=== PATIENT | female | born 1990 | race Caucasian/White ===

== ENCOUNTER → 2016-07-10 | Outpatient (CLI) | payer OTHER ==
--- NOTE | 2016-07-10 16:26 | REP ---
Clinical: Anatomical evaluation. Comparison: None . Findings: Examination demonstrates a single live intrauterine in breech presentation. motion is identified by technologist. Placenta is noted posterior and grade the zero without evidence for placenta previa or abruption. Amniotic fluid volume is normal. Cervix measures 4.3 cm in length and appears closed. No evidence for nuchal cord. Gestational age by LMP 18 weeks 6 days with SAURABH 12/05/2016 . Gestational age by current measurements 19 weeks 2 days with SAURABH 12/02/2016 . FHR equals 147 beats per minute. BPD 4.2 18 weeks 5 days HC 16.6 19 weeks 2 days AC 14.5 19 weeks 6 days FL 3.1 19 weeks 4 days HC/AC ratio 1.15 Estimated weight 303 grams ( 75th percentile). Anatomical assessment demonstrates normal structures including cranium, choroid plexus, cavum, cerebellum/posterior fossa, facial features, lungs, four-chamber heart/ventricular outflow tracts, diaphragm, stomach, cord insertion/three-vessel cord, kidneys/bladder, spine, and extremities. Impression: Single live intrauterine in breech presentation demonstrating appropriate interval growth. Anatomical assessment is complete and normal.
== END ==
LOC: M WHC 14:50
PROVIDERS: ATTEND Obstetrics & Gynecology
DX: Z36 Encounter for antenatal screening of mother (principal); Z3A.18 18 weeks gestation of pregnancy

== ENCOUNTER → 2016-11-07 | Outpatient (REF) | payer OTHER | LOC: M LAB REF 17:24 | PROVIDERS: ATTEND Specialist | DX: Z36 Encounter for antenatal screening of mother (principal); Z3A.00 Weeks of gestation of pregnancy not specified ==

== ENCOUNTER 2016-12-08 08:36 | Inpatient (IN) | payer OTHER ==
[~2016-12-08] VITALS: Ht 162.6 cm; Wt 70.0 kg
[2016-12-08] VITALS (31 sets, daily range): BP systolic 90–152; BP diastolic 50–82
[2016-12-08 12:36] LABS: MEAN CORPUSCULAR HEMOGLOBIN 35.5 pg (27.0-33.0); MEAN CORPUSCULAR HGB CONC 35.9 g/dl (32.0-36.5); MEAN CORPUSCULAR VOLUME 98.9 fl (80.0-96.0); RED CELL DISTRIBUTION WIDTH 13.5 % (11.5-14.5); WHITE BLOOD COUNT 21.5 K/mm3 (4.0-10.0)
[2016-12-08] MEDS ORDERED: PRENTAB9 PO (13:17)
[2016-12-08] MEDS ORDERED: ACET50TA PO (13:17)
[2016-12-08] MEDS ORDERED: OXYTOCIN DRIP 30 UNITS in APPROPRIATE DILUENT 1 EA IV SCH (16:45)
[2016-12-08] MEDS ORDERED: FENTANYL 2MCG/ML ROPIVACAINE 0.2% IN 0.9% NACL 200ML IVBAG As Ordered ONE (17:19)
[2016-12-08] MEDS ORDERED: EPIDURAL/PCA KEYS XX PRN (18:30)
[2016-12-08] MEDS ORDERED: FENTANYL/ROPIVACAINE/NACL BAG 200 ML EPIDURAL SCH (18:30)
[2016-12-08] MEDS ORDERED: EPIDURAL COMMENT XX SCH (18:30)
[2016-12-08] MEDS ORDERED: REFRIGERATOR IV KEYS XX PRN (18:30)
[2016-12-08] MEDS ORDERED: NALOXONE INJ 0.4 MG/1 ML VIAL (J2310) IV PRN (18:30)
[2016-12-08] MEDS ORDERED: ONDANSETRON 4MG/2ML VIAL (J2405) IV PRN (18:30)
[2016-12-08] MEDS ORDERED: diphenhydrAMINE INJ 50MG/ML VIAL (J1200) IV PRN (18:30)
[2016-12-08] MEDS ORDERED: LACTATED RINGER'S 1000 ML IV PRN (18:30)
[2016-12-08] MEDS: LR 1,000 ML IV SCH (19:42)
--- NOTE | 2016-12-08 20:23 | HPE ---
DATE OF ADMISSION: 12/08/2016 HISTORY: A 26-year-old 2, para 0-0-1-0 female at 40 and 3/7 weeks gestation by last menstrual period (LMP) consistent with eight-week ultrasound, estimated date of confinement (EDC) 12/05/2016, who presents with regular contractions every 3-4 minutes for the last several hours. Denies vaginal bleeding. Has good movement. COURSE: The patient initiated care at eight weeks gestation on 04/28/2016. Her first trimester blood pressure was 120/68, weight 136 pounds. course was unremarkable. MEDICAL HISTORY: Noncontributory. SURGERIES: None. ALLERGIES: None. SOCIAL HISTORY: The patient smokes cigarettes. She cut back to about eight cigarettes per day at the start of her . She denies alcohol or drug use during . FAMILY HISTORY: Noncontributory. PHYSICAL EXAMINATION: VITAL SIGNS: Blood pressure 124/74, pulse 84. GENERAL: She appears uncomfortable. HEAD/NECK: Normal. LUNGS: Clear. HEART: Regular rate and rhythm. ABDOMEN: Nontender. Gravid. heart tones category one. STERILE VAGINAL EXAM: 3 cm, 100% effaced, -1 station, vertex intact. Contractions every 3-4 minutes. EXTREMITIES: Nontender. LABORATORY DATA: Blood type A positive. Rubella immune. RPR nonreactive. Hepatitis B and C negative. HIV negative. GBS negative on 11/07/2016. ASSESSMENT: A 26-year-old 2, para 0-0-1-0 female at 40 and 3/7 weeks gestation presents in early labor. The patient is admitted on 12/08/2016.
[2016-12-08] MEDS: ePHEDrine SULFATE 25 MG/5 ML(5MG/ML) SYRINGE IV PRN ×2 (23:04→23:07)
[2016-12-09] VITALS (23 sets, daily range): BP systolic 97–137; BP diastolic 52–78
[2016-12-09] MEDS: LR 1,000 ML IV SCH (06:31)
[2016-12-09] MEDS ORDERED: AMPICILLIN SOD 2 GM in D5W MINI-BAG PLUS 100 ML IV SCH (07:00)
[2016-12-09] MEDS ORDERED: GENTAMICIN 80 MG in APPROPRIATE DILUENT 1 EA IV SCH (08:00)
[2016-12-09 08:57] LABS: CORD GAS ABE V -4.6; CORD GAS HCO3 V 19.8 MEQ/L; CORD GAS O2 SAT V 47.3 %; CORD GAS PCO2 V 35.2 mmHg; CORD GAS PH V 7.368 UNITS; CORD GAS PO2 V 20.7 mmHg; CORD GAS SBC V 19.4 MEQ/L; CORD GAS TCO2 V 20.9 MEQ/L
[2016-12-09] MEDS ORDERED: METHYLERGONOVINE MALEATE 0.2 MG TAB PO PRN (09:00)
[2016-12-09] MEDS ORDERED: ONDANSETRON 4MG/2ML VIAL (J2405) IV PRN (09:00)
[2016-12-09] MEDS ORDERED: RHOGAM 300 MCG (1500 IU) INJ (J2790) IM SCH (09:00)
[2016-12-09] MEDS ORDERED: MEASLES,MUMPS,RUBELLA VACCINE INJ (MMR-II) (90707) SC SCH (09:00)
[2016-12-09] MEDS ORDERED: DIBUCAINE 1% OINTMENT 30GM TOP PRN (09:00)
[2016-12-09] MEDS ORDERED: ACETAMINOPHEN 500 MG TAB PO PRN (09:00)
[2016-12-09] MEDS ORDERED: OXYTOCIN DRIP 30 UNITS in APPROPRIATE DILUENT 1 EA IV ONE (09:00)
[2016-12-09] MEDS: PRENATAL VITAMINS CHEWABLE TABLET PO SCH (09:00)
[2016-12-09] MEDS ORDERED: DOCUSATE SODIUM 100 MG CAP PO PRN (09:00)
[2016-12-09] MEDS: IBUPROFEN 800 MG TAB PO PRN ×2 (10:01→18:41)
[2016-12-10 06:20] VITALS: BP 117/69
[2016-12-10] MEDS: PRENATAL VITAMINS CHEWABLE TABLET PO SCH (10:23)
[2016-12-10] MEDS: IBUPROFEN 800 MG TAB PO PRN ×2 (10:23→19:50)
[2016-12-10 19:30] VITALS: BP 125/68
--- NOTE | 2016-12-10 22:46 | DN ---
DATE OF DELIVERY: 12/09/2016 PREDELIVERY DIAGNOSES: 1. Term . 2. Labor. POSTDELIVERY DIAGNOSIS: Delivered. PROCEDURE: Spontaneous vaginal delivery, chorioamnionitis. LIBRARY TECHNOLOGY INSTRUCTOR: Ugo Lozada MD. ANESTHESIA: Epidural. ESTIMATED BLOOD LOSS: 300 mL. FINDINGS: 3958 gram or 8 pound 12 ounce male infant, scores 2, 6 and 9 with moderate meconium present. Venous cord gas 7.36, base excess -4.6. DELIVERY SUMMARY: After a short second stage, the patient had spontaneous delivery of an 8 pound 12 ounce male infant under epidural anesthesia. Patient had been on antibiotics for presumed chorioamnionitis due to intrapartum fever to 100.9. The shoulders delivered with ease. The was handed to the mother. The cord was doubly clamped and cut. The placenta delivered spontaneously and appeared to be intact. The patient received intravenous (IV) Pitocin immediately after delivery of the placenta. There were no vaginal lacerations present. Sponge counts were correct.
[2016-12-11 06:41] VITALS: BP 119/76
[2016-12-11] MEDS: PRENATAL VITAMINS CHEWABLE TABLET PO SCH (07:53)
[2016-12-11] MEDS: IBUPROFEN 800 MG TAB PO PRN (07:55)
[2016-12-11] MEDS ORDERED: IBUP-1114 PO (09:22)
== END 2016-12-11 11:05 | disposition home or self-care (01) | DRG 560 ==
LOC: M LDO 08:36 → M LDI 10:07 → M OBS 12-09 13:37
PROVIDERS: ADMIT Specialist; ATTEND Specialist
PROC: 10E0XZZ Delivery of Products of Conception, External Approach (ICD-10-PCS; principal; 2016-12-09)
DX: O48.0 Post-term pregnancy (principal); O41.1230 Chorioamnionitis, third trimester, not applicable or unspecified; Z37.0 Single live birth; Z3A.40 40 weeks gestation of pregnancy; F17.210 Nicotine dependence, cigarettes, uncomplicated; O99.334 Smoking (tobacco) complicating childbirth

== ENCOUNTER → 2019-02-13 | Outpatient (CLI) | payer OTHER ==
[~2019-02-13] MED LIST: IBUP-1114 PO; LABE20TAB PO; MAPA500T2 PO; PRENTAB9 PO
[2019-02-13 13:43] LABS: BASO # 0.1 10^3/uL (0.0-0.2); BASO % 0.9 % (0.0-1.0); EOS # 0.3 10^3/uL (0.0-0.5); EOS % 3.3 % (0.0-3.0); HEMATOCRIT 36.7 % (36.0-47.0); HEMOGLOBIN 12.5 g/dl (12.0-15.5); LYMPH # 3.7 10^3/uL (1.5-5.0); LYMPH % 35.6 % (24.0-44.0); MEAN CORPUSCULAR HEMOGLOBIN 33.5 pg (27.0-33.0); MEAN CORPUSCULAR HGB CONC 34.1 g/dl (32.0-36.5); MEAN CORPUSCULAR VOLUME 98.4 fl (80.0-96.0); MONO # 0.6 10^3/uL (0.0-0.8); MONO % 5.9 % (0.0-5.0); NEUTROPHILS # 5.6 10^3/uL (1.5-8.5); NEUTROPHILS % 53.5 % (36.0-66.0); PLATELET COUNT, AUTOMATED 440 10^3/uL (150-450); RED BLOOD COUNT 3.73 10^6/uL (4.00-5.40); WHITE BLOOD COUNT 10.4 10^3/uL (4.0-10.0)
[2019-02-13 15:37] LABS: CHLAMYDIA DNA AMPLIFICATION NEGATIVE (NEGATIVE); GC DNA AMPLIFICATION NEGATIVE (NEGATIVE)
[2019-02-14 12:22] LABS: HEPATITIS C VIRUS ABY INDEX 0.2 INDEX (<0.8); HIV 1&2 SCREEN CENTAUR NEGATIVE (NEGATIVE); RUBELLA IgG QUALITATIVE IMMUNE (IMMUNE)
== END ==
LOC: M SMT 09:21
PROVIDERS: ATTEND Advanced Practice Midwife
DX: Z34.81 Encounter for supervision of other normal pregnancy, first trimester (principal); Z3A.00 Weeks of gestation of pregnancy not specified

== ENCOUNTER → 2019-04-22 | Outpatient (CLI) | payer OTHER ==
--- NOTE | 2019-04-22 17:38 | REP ---
Clinical: Anatomical evaluation. Comparison: None . Findings: Examination demonstrates a single live intrauterine in transverse (head to maternal left) presentation. motion is identified by technologist. Placenta is noted anterior and grade zero without evidence for placenta previa or abruption. Amniotic fluid volume is normal. Cervix measures 3.5 cm in length and appears closed. No evidence for nuchal cord. Gestational age by LMP 18 weeks 0 days with SAURABH 09/23/2019 . Gestational age by current measurements 18 weeks 2 days with SAURABH 09/21/2019 . FHR equals 126 beats per minute. BPD 3.8 cm 17 weeks 5 days HC 14.7 cm 17 weeks 6 days AC 13.1 cm 18 weeks 4 days FL 2.6 cm 18 weeks 0 days HL 2.9 cm 19 weeks 2 days HC/AC ratio 1.12 Estimated weight 231 grams ( 57th percentile). Anatomical assessment demonstrates normal structures including cranium, choroid plexus, cavum, cerebellum/posterior fossa, facial features, lungs, four-chamber heart/ventricular outflow tracts, diaphragm, stomach, cord insertion/three-vessel cord, kidneys/bladder, spine, and extremities. Impression: Single live intrauterine in transverse lie demonstrating appropriate interval growth. Anatomical assessment is complete and normal. No gross abnormalities are identified. Electronically Signed by Colby Sevilla MD 04/22/2019 05:30 P
== END ==
LOC: M RAD 16:27
PROVIDERS: ATTEND Obstetrics & Gynecology
DX: Z34.82 Encounter for supervision of other normal pregnancy, second trimester (principal); Z3A.18 18 weeks gestation of pregnancy

== ENCOUNTER 2019-06-18 21:55 | Inpatient (IN) | payer OTHER ==
[~2019-06-18] VITALS: Ht 162.6 cm; Wt 72.3 kg
[2019-06-18 22:15] VITALS: BP 135/77
[2019-06-18] MEDS ORDERED: PROMETHAZINE INJ 25 MG/ML VIAL (J2550) IV ONE (22:45)
[2019-06-18] MEDS ORDERED: BUTORPHANOL 2 MG/ML INJ (J0595) IV ONE (22:45)
[2019-06-18 23:07] LABS: HEMATOCRIT 37.9 % (36.0-47.0); HEMOGLOBIN 12.4 g/dl (12.0-15.5); MEAN CORPUSCULAR HEMOGLOBIN 32.4 pg (27.0-33.0); MEAN CORPUSCULAR HGB CONC 32.7 g/dl (32.0-36.5); PLATELET COUNT, AUTOMATED 190 10^3/uL (150-450); RED BLOOD COUNT 3.83 10^6/uL (4.00-5.40); WHITE BLOOD COUNT 9.2 10^3/uL (4.0-10.0)
[2019-06-18 23:10] VITALS: BP 118/74
[2019-06-18] MEDS: miSOPROStol 200 MCG TAB (S0191) PO SCH (23:12)
[2019-06-19] VITALS (10 sets, daily range): BP systolic 106–150; BP diastolic 53–79
[2019-06-19] MEDS: miSOPROStol 200 MCG TAB (S0191) PO SCH (05:14)
--- NOTE | 2019-06-19 06:47 | HPE ---
DATE OF ADMISSION: 06/18/2019 Pita is a 28-year-old 3, para 1-0-1-1 now who was admitted to labor and delivery with an intrauterine demise. She presented to the care office on June 16 for routine care and was diagnosed with an intrauterine demise. By today's date, she should be 26-1/7 weeks based on an estimated date of confinement (EDC) of 09/23/2019. The fetus measured 20 weeks and 1 day by biparietal diameter(BPD) on 06/16. She denies any vaginal bleeding or leakage of fluid. There is no complaint of contractions. Her care was initiated at [facility] in the first trimester. care complicated by a diagnosis of intrauterine demise (IUFD). OBSTETRICAL HISTORY: August 2012 spontaneous miscarriage at 7 weeks. November 2016 40 weeks 4 days, 8 pound 12 ounce male spontaneous vaginal delivery. OBSTETRIC LABS: A positive. Antibody screen negative. Rubella immune. VDRL nonreactive. Urine culture no growth. Hep B surface antigen negative. HIV negative. Hep C nonreactive. Gonorrhea and chlamydia negative. She did decline genetic serum screening labs. PAST MEDICAL HISTORY: She has oral allergy syndrome. She is allergic to apples, peaches, pears and fruits with any pits. Causes her severe itching of the mouth. She has a history of an abnormal Pap in 2013. Childhood varicella. SURGERIES: None. FAMILY HISTORY: Hypertension, heart disease, bipolar and varicose veins. SOCIAL HISTORY: : The patient is single, however the father of the baby is at bedside. He is having some difficulty coping. She reports reducing her smoking significantly during her . Denies alcohol and drug use during . There is no history of any sexually transmitted infections. She denies history of abuse physical, sexual and emotional. ALLERGIES: No known drug allergies. CURRENT MEDICATIONS: - vitamin - bupropion OBJECTIVE: Vital signs are stable, temperature 98.1, pulse 95, respirations 20, blood pressure is 135/77. She is alert and oriented times three. Sterile vaginal exam: Fingertip dilated, 50% effaced, posterior, moderate texture. No bloody show with the exam. No current pattern of contractions. Ultrasound for heart will not be applied. ASSESSMENT: Intrauterine demise. By dates she is 26-1/7 weeks. The fetus measures 21 weeks' 1 day by BPD. PLAN: Admit the patient to labor and delivery for induction of labor per consult. Routine labs. Saline lock. Misoprostol 200 mcg p.o. for induction. I did review risks and benefits with the patient. She and her partner's questions have been answered. She is considering IV pain medications to cope with her labor and/or an epidural. I do anticipate labor.
[2019-06-19] MEDS ORDERED: miSOPROStol 200 MCG TAB (S0191) PO SCH ×2 (09:00→10:30)
[2019-06-19] MEDS ORDERED: OXYTOCIN 30 UNITS IN 0.9% NaCl 500ML IV BAG (J2590) As Ordered ONE (10:27)
[2019-06-19] MEDS ORDERED: OXYTOCIN DRIP 30 UNITS in IV 1 EA IV SCH (10:40)
[2019-06-19] MEDS ORDERED: METHYLERGONOVINE MALEATE 0.2 MG TAB PO PRN (10:45)
[2019-06-19] MEDS ORDERED: ACETAMINOPHEN TAB 650MG DOSE (2X325MG) PO PRN (10:45)
[2019-06-19] MEDS ORDERED: RHOGAM 300 MCG (1500 IU) INJ (J2790) IM SCH (10:45)
[2019-06-19] MEDS ORDERED: IBUPROFEN 800 MG TAB PO PRN (10:45)
[2019-06-19] MEDS ORDERED: IBUPROFEN 600 MG TAB PO PRN (10:45)
[2019-06-19] MEDS ORDERED: ACETAMINOPHEN 500 MG TAB PO PRN (10:45)
--- NOTE | 2019-06-19 19:03 | DN ---
DATE: 06/19/2019 Pita is a 28-year-old female, 3, para 1-0-1-1 who was admitted with intrauterine demise at 26 weeks. She received care at [facility]. She was diagnosed with an intrauterine demise on June 16 during a routine care. She presented here to labor and delivery. Had two doses of Cytotec with intravenous (IV) pain medications. She then became fully dilated. Delivered the fetus as well as the placenta intact in the bag. Upon delivery, it was noted that the cord was wrapped around the fetus times four, around the right arm. The placenta appeared to be intact. Fetus is a female infant, 0 , demise. The perineum and vagina inspected as well as bimanual exam done. No excessive bleeding. Estimated blood loss was 150 mL. Both the patient and the father of the baby counseled extensively. Option for autopsy given. They both declined. The patient also expressed an interest in going home as soon as possible. We discussed that option with her and advised her as long there is no excessive bleeding within 4-6 hours after her delivery, she will be discharged home to followup at [facility] in approximately 1-2 weeks.
== END 2019-06-19 16:10 | disposition home or self-care (01) | DRG 560 ==
LOC: EEVIPCON 21:55 → M LDI 21:55
PROVIDERS: ADMIT Advanced Practice Midwife; ATTEND Advanced Practice Midwife
PROC: 10E0XZZ Delivery of Products of Conception, External Approach (ICD-10-PCS; principal; 2019-06-19)
DX: O69.82X0 Labor and delivery complicated by other cord entanglement, without compression, not applicable or unspecified (principal); Z3A.26 26 weeks gestation of pregnancy; Z37.1 Single stillbirth

== ENCOUNTER → 2020-05-12 | Outpatient (REF) | payer OTHER ==
[2020-05-12 17:09] LABS: HEMATOCRIT 35.1 % (36.0-47.0); HEMOGLOBIN 11.8 g/dl (12.0-15.5); MEAN CORPUSCULAR HEMOGLOBIN 32.8 pg (27.0-33.0); MEAN CORPUSCULAR HGB CONC 33.6 g/dl (32.0-36.5); MEAN CORPUSCULAR VOLUME 97.5 fl (80.0-96.0); PLATELET COUNT, AUTOMATED 224 10^3/uL (150-450); WHITE BLOOD COUNT 9.1 10^3/uL (4.0-10.0)
[2020-05-13 11:33] LABS: HEPATITIS C VIRUS ABY INDEX 0.1 INDEX (<0.8); HIV 1&2 SCREEN CENTAUR NEGATIVE (NEGATIVE)
== END ==
LOC: M PLALAB 15:19
PROVIDERS: ATTEND Obstetrics & Gynecology
DX: O09.291 Supervision of pregnancy with other poor reproductive or obstetric history, first trimester (principal); Z3A.00 Weeks of gestation of pregnancy not specified

== ENCOUNTER → 2020-05-28 | Outpatient (CLI) | payer OTHER | LOC: M PLALAB 10:01 | PROVIDERS: ATTEND Advanced Practice Midwife | DX: Z34.82 Encounter for supervision of other normal pregnancy, second trimester (principal); Z3A.00 Weeks of gestation of pregnancy not specified ==

== ENCOUNTER → 2020-06-28 | Outpatient (REF) | payer OTHER ==
[2020-06-28 21:46] LABS: CHLAMYDIA DNA AMPLIFICATION NEGATIVE (NEGATIVE); GC DNA AMPLIFICATION NEGATIVE (NEGATIVE)
== END ==
LOC: M SFHCWAGY 17:15
PROVIDERS: ATTEND Obstetrics & Gynecology
DX: O09.291 Supervision of pregnancy with other poor reproductive or obstetric history, first trimester (principal)

== ENCOUNTER → 2020-06-29 | Outpatient (CLI) | payer OTHER ==
--- NOTE | 2020-06-29 10:33 | REP ---
INDICATION: ANATOMY COMPARISON: None. TECHNIQUE: Transabdominal obstetrical ultrasound with color Doppler evaluation. FINDINGS: Examination demonstrates a single live intrauterine in breech presentation. motion is identified by technologist. Placenta is noted posterior and grade 1 without evidence for placenta previa or abruption. Amniotic fluid volume is normal. Cervix measures 5.9 cm in length and appears closed.. Gestational age by LMP 18 weeks 3 days with SAURABH 11/27/2020. Gestational age by current measurements 18 weeks 1 day with SAURABH 11/29/2020. FHR equals 169 beats per minute. BPD: 3.8 cm 17 weeks 5 days HC: 15.1 cm 18 weeks 1 day AC: 12.5 cm 18 weeks 1 day FL: 2.6 cm 18 weeks 0 days HL: 2.7 cm 18 weeks 5 days HC/AC: 1.21 Estimated weight 221 grams. Anatomical assessment demonstrates normal structures including cranium, choroid plexus, cavum, cerebellum/posterior fossa, facial features, lungs, four-chamber heart/left ventricular outflow tract, diaphragm, stomach, cord insertion/three-vessel cord, kidneys/bladder, and extremities. IMPRESSION: Single live intrauterine in breech presentation demonstrating appropriate estimated growth. Limited evaluation of the right cardiac ventricular outflow tract and spine due to positioning. Remainder of the anatomical assessment is complete and normal. <Electronically signed by Colby Sevilla > 06/29/20 [id number]
== END ==
LOC: M RAD 09:27
PROVIDERS: ATTEND Advanced Practice Midwife
DX: Z34.82 Encounter for supervision of other normal pregnancy, second trimester (principal)

== ENCOUNTER → 2020-07-13 | Outpatient (CLI) | payer OTHER | LOC: M WHC 14:57 | PROVIDERS: ATTEND Obstetrics & Gynecology | DX: Z53.29 Procedure and treatment not carried out because of patient's decision for other reasons (principal); Z3A.20 20 weeks gestation of pregnancy ==

== ENCOUNTER → 2020-07-27 | Outpatient (REF) | payer OTHER | LOC: M PLALAB 15:14 | PROVIDERS: ATTEND Obstetrics & Gynecology | DX: Z3A.22 22 weeks gestation of pregnancy (principal) ==

== ENCOUNTER → 2020-07-29 | Outpatient (CLI) | payer OTHER ==
--- NOTE | 2020-07-29 11:40 | REP ---
INDICATION: F/U ANATOMY COMPARISON: 06/29/2020 TECHNIQUE: Transabdominal obstetrical ultrasound with color Doppler evaluation. FINDINGS: Examination demonstrates a single live intrauterine in cephalic presentation. motion is identified by technologist. Placenta is noted posterior and grade 1 without evidence for placenta previa or abruption. Amniotic fluid volume is normal. Cervix measures 4.9 cm in length and appears closed.. Gestational age by LMP 22 weeks 5 days with SAURABH 11/27/2020. Gestational age by current measurements 22 weeks 2 days with SAURABH 11/30/2020. Gestational age by 1st ultrasound 22 weeks 3 days with SAURABH 11/29/2020 FHR equals 143 beats per minute. Estimated weight 484 grams (22ndpercentile). Anatomical assessment demonstrates normal structures including cranium, facial profile, nose/lips, right cardiac ventricular outflow tract, stomach, kidneys/bladder, spine and three-vessel cord. IMPRESSION: Single live intrauterine in cephalic presentation demonstrating appropriate interval growth. In conjunction with prior examination anatomical assessment is complete and normal. <Electronically signed by Colby Sevilla > 07/29/20 [id number]
== END ==
LOC: M WHC 09:24
PROVIDERS: ATTEND Obstetrics & Gynecology
DX: Z34.92 Encounter for supervision of normal pregnancy, unspecified, second trimester (principal); Z3A.22 22 weeks gestation of pregnancy

== ENCOUNTER → 2020-08-24 | Outpatient (REF) | payer OTHER ==
[2020-08-24 17:59] LABS: HEMATOCRIT 34.5 % (36.0-47.0); HEMOGLOBIN 11.3 g/dl (12.0-15.5); MEAN CORPUSCULAR HEMOGLOBIN 33.2 pg (27.0-33.0); MEAN CORPUSCULAR HGB CONC 32.8 g/dl (32.0-36.5); MEAN CORPUSCULAR VOLUME 101.5 fl (80.0-96.0); PLATELET COUNT, AUTOMATED 173 10^3/uL (150-450); WHITE BLOOD COUNT 10.1 10^3/uL (4.0-10.0)
== END ==
LOC: M PLALAB 14:21
PROVIDERS: ATTEND Obstetrics & Gynecology
DX: Z34.92 Encounter for supervision of normal pregnancy, unspecified, second trimester (principal); Z3A.22 22 weeks gestation of pregnancy

== ENCOUNTER → 2020-10-01 | Outpatient (CLI) | payer OTHER ==
--- NOTE | 2020-10-03 07:02 | REP ---
INDICATION: HX IUFD,GROWTH,RENAE COMPARISON: 07/29/2020 TECHNIQUE: Transabdominal obstetrical ultrasound with color Doppler evaluation. FINDINGS: Examination demonstrates a single live intrauterine in cephalic presentation. motion is identified by technologist. Placenta is noted posterior and grade 1 without evidence for placenta previa or abruption. Amniotic fluid volume is normal. Cervix measures 5.2 cm in length and appears closed. No evidence for nuchal cord. Gestational age by LMP 31 weeks 6 days with SAURABH 11/27/2020. Gestational age by current measurements 31 weeks 6 days with SAURABH 11/27/2020. FHR equals 140 beats per minute. BPD: 7.9 cm at 31 weeks 4 days HC: 29.4 cm at 32 weeks 4 days AC: 27.8 cm at 31 weeks 6 days FL: 6.1 cm at 31 weeks 5 days HL: 5.4 cm at 31 weeks 4 days HC/AC: 1.06 Estimated weight 1850 grams (37thpercentile). RENAE: 11.8 cm Umbilical artery SD ratio: 2.90 (1.85-3.88) IMPRESSION: Single live intrauterine in cephalic presentation demonstrating appropriate estimated weight and growth. <Electronically signed by Colby Sevilla > 10/03/20 [id number]
== END ==
LOC: M WHC 13:06
PROVIDERS: ATTEND Advanced Practice Midwife
DX: Z34.93 Encounter for supervision of normal pregnancy, unspecified, third trimester (principal); Z3A.31 31 weeks gestation of pregnancy

== ENCOUNTER → 2020-10-22 | Outpatient (CLI) | payer OTHER ==
--- NOTE | 2020-10-22 12:25 | REP ---
INDICATION: GROWTH/RENAE COMPARISON: 10/01/2020 TECHNIQUE: Transabdominal obstetrical ultrasound with color Doppler evaluation. FINDINGS: Examination demonstrates a single live intrauterine in cephalic presentation. motion is identified by technologist. Placenta is noted posterior and grade 2 without evidence for placenta previa or abruption. Amniotic fluid volume is normal. Cervix measures 4.8 cm in length and appears closed.. Selected gestational age: 34 weeks 6 days with SAURABH 11/27/2020. Gestational age by current measurements 35 weeks 0 days with SAURABH 11/26/2020. FHR equals 136 beats per minute. BPD: 8.6 cm at 34 weeks 4 days HC: 31.8 cm at 35 weeks 5 days AC: 31.0 cm at 35 weeks 0 days FL: 6.8 cm at 34 weeks 6 days HL: 6.0 cm at 35 weeks 0 days HC/AC: 1.03 Estimated weight 2565 grams (49thpercentile). RENAE: 15.8 cm Umbilical artery SD ratio: 2.62 (1.69-3.60) IMPRESSION: Single live intrauterine in cephalic presentation. Appropriate estimated weight. Normal amniotic fluid index. <Electronically signed by Colby Sevilla > 10/22/20 [id number]
== END ==
LOC: M WHC 09:30
PROVIDERS: ATTEND Advanced Practice Midwife
DX: Z34.93 Encounter for supervision of normal pregnancy, unspecified, third trimester (principal); Z3A.34 34 weeks gestation of pregnancy

== ENCOUNTER → 2020-10-29 | Outpatient (REF) | payer OTHER | LOC: M SFHCWAGY 12:57 | PROVIDERS: ATTEND Advanced Practice Midwife | DX: Z34.93 Encounter for supervision of normal pregnancy, unspecified, third trimester (principal); Z87.898 Personal history of other specified conditions ==

== ENCOUNTER → 2020-11-16 | Outpatient (CLI) | payer OTHER ==
--- NOTE | 2020-11-16 09:53 | REP ---
INDICATION: GROWTH/RENAE/HX IUFD COMPARISON: 10/22/2020 TECHNIQUE: Transabdominal obstetrical ultrasound with color Doppler evaluation. FINDINGS: Examination demonstrates a single live intrauterine in cephalic presentation. motion is identified by technologist. Placenta is noted posterior and grade 1 without evidence for placenta previa or abruption. Amniotic fluid volume is normal. Cervix measures 4.3 cm in length and appears closed.. Selected gestational age: 38 weeks 3 days with SAURABH 11/27/2020. Gestational age by current measurements 38 weeks 1 day with SAURABH 11/29/2020. FHR equals 147 beats per minute. Estimated weight 3439 grams (61stpercentile). RENAE: 21.8 cm (7.3-23.4) IMPRESSION: Single live advanced gestation in cephalic presentation demonstrating appropriate estimated weight. Amniotic fluid volume is upper limits of normal. <Electronically signed by Colby Sevilla > 11/16/20 0949
== END ==
LOC: M WHC 09:06
PROVIDERS: ATTEND Advanced Practice Midwife
DX: Z34.82 Encounter for supervision of other normal pregnancy, second trimester (principal)

== ENCOUNTER → 2020-11-20 | Outpatient (CLI) | payer OTHER ==
[~2020-11-20] MED LIST changes: +DOK1CAP7 PO; +FERR1TAB8 PO; +IBUP80TA PO
== END ==
LOC: M LABSMTC 10:25
PROVIDERS: ATTEND Specialist
DX: Z20.822 Contact with and (suspected) exposure to COVID-19 (principal)

== ENCOUNTER 2020-11-22 07:44 | Inpatient (IN) | payer OTHER ==
[2020-11-22] VITALS (17 sets, daily range): BP systolic 100–135; BP diastolic 55–86
[~2020-11-22] VITALS: Ht 162.6 cm; Wt 84.7 kg
[~2020-11-22 07:44] MED LIST changes: -DOK1CAP7 PO; -FERR1TAB8 PO; -IBUP80TA PO
[2020-11-22] MEDS ORDERED: CARBOPROST TROMETHAMINE 250 MCG/ML AMP IM PRN (08:40)
[2020-11-22] MEDS ORDERED: LACTATED RINGER'S 1000 ML IV STA (08:40)
[2020-11-22] MEDS ORDERED: LIDOCAINE 1% MDV 20ML VIAL INFIL PRN (08:40)
[2020-11-22] MEDS ORDERED: METHYLERGONOVINE MALEATE 0.2 MG/ML VIAL (J2210) IM PRN (08:40)
[2020-11-22] MEDS ORDERED: OXYTOCIN DRIP 30 UNITS in IV 1 EA IV PRN (08:40)
[2020-11-22] MEDS ORDERED: TRANEXAMIC ACID INJection 1,000 MG in NS 100 ML IV PRN (08:40)
--- NOTE | 2020-11-22 08:48 | HPEPDOC ---
Obstetrical History & Physical General Date of Admission Nov 22, 2020 at 07:44 Primary Care Physician: JAMES KILLIAN CNM History of Present Illness Pita is a 30-year-old female who is a at 39.2 weeks gestation with an SAURABH of 11/27/20 based off of her LMP and consistent with her first trimester ultrasound. She initiated care in her first trimester of with [facility]. Her has been complicated by a history of a second trimester demise at 25 weeks. She presents for an elective induction. She reports active movement. She denies contractions, leaking of fluid or vaginal bleeding. Chief Complaint: Induction of labor Information Provided By: Patient Age: 30 : 4 Term: 1 Pre-term: 1 Abortions: 1 Livin Care Care: Good Care Number of Visits: 16 Dating Final EDC: Nov 27, 2020 Final EDC by: LMP LMP: Feb 21, 2020 EGA at Admission: 39.3 Antepartum Course Diagnos(e)s history of demise at 25 weeks Height (inches): 64 Pre- weight (lbs.): 152 Admission Weight (lbs.): 186 Change in Weight (lbs.): 34 Past Medical History Past Obstetrical History #1: Past Obstetrical History: Primgravida Date of Delivery: Dec 09, 2016 Gestation: 41 Type of Delivery: Spontaneous Vaginal Del. Sex of : Male (8 lbs 12 oz) Complications: No Past Obstetrical History #2: Type of Delivery: Spontaneous Vaginal Del. 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.) * Smoker: non-smoker Alcohol: Denies Abuse Violence Screening Have you been hit/kicked/slapp: No Have you been sexually assault: No Allergies Coded Allergies: Brooke (Verified Allergy, Unknown, 11/22/20) Plums (Verified Allergy, Unknown, 11/22/20) apple (Verified Adverse Reaction, Mild, ITCHY MOUTH, 11/22/20) pear (Verified Adverse Reaction, Mild, ITCHY MOUTH, 11/22/20) Medications Scheduled No.137/Iron/Folic Acd ( Vitamin Tablet) 1 Tab Tab, 1 TAB PO DAILY Scheduled PRN Acetaminophen (Mapap) 500 Mg Tab, 1,000 MG PO PRN PRN for pain Physical Examination Physical Examination GENERAL: Alert and oriented times three. BREAST: . ABDOMEN: Gravid and non-tender to touch. FETUS: Is vertex (VTX) by sterile vaginal examination (SVE), fetus is vertex (VTX) by Marino. LUNGS: Clear to auscultation (CTA). EXTREMITIES: No edema. No clonus. Deep tendon reflexes (DTRs) + 2. Vital Signs/I&O Vital Signs Label Value Date Time Patient Temperature 97.9 degrees F 11/22/20 0805 Temperature Source Temporal 11/22/20 0805 Pulse 97 11/22/20 0805 Respiratory Rate 18 bpm 11/22/20 0805 Blood Pressure Assessment 116/78 (91) 11/22/20 0805 Source Automatic Cuff (NIBP) Laboratory Data [facility] Laboratory Tests 2 11/22/20 08:26: Serology Scanned Report Hepatitis B Testing Pertinent Laboratoy Data RBC Antibody Screen: Negative HIV: Negative Hepatitis B: Negative Hepatitis C: Negative Rapid Plasma Reagin: Nonreactive Rubella: Immune Chlamydia/Gonorrhea: Negative Group B Streptococcus: Negative Glucose Tolerance Test: 127 Anatomy Ultrasound Ultrasound Date: Oct 22, 2020 Placenta Location: Posterior Normal Anatomy: Yes Placenta Previa: No Estimated Weight (grams): 2565 Other Ultrasounds Information NIPT low risk female Vaginal Examination Dilation: None Effacement: other (thick) Station: -3 Cervical Consistency: Soft Cervical Position: Middle Presentation: Cephalic presentation Position: Vertex (occiput) Assessment Heart Rate (FHR): 135 Variability: Moderate Accelerations: Positive Decelerations: None Tocometer Contractions: Yes Frequency: greater than 9 min/apart Assessment/Plan Assessment IUP at 39.2 weeks gestation Category I FHR tracing elective induction of labor GBS negative Plan Admit to L&D. OOB ad angie. Diet: regular now then clears when IV Pitocin started. Group B Streptococcus (GBS) negative. Labs and intravenous (IV) per unit protocol. Counseled on Cytotec, weems bulb and IV Pitocin for induction of labor (IOL). Cytotec to be started per order. Anesthesia consult per patient's request. Lactated Ringers (LR): Bolus 800 mL prior to epidural then at 125 mL/hr. Anticipate cervical ripening. C-S as appropriate. JAMES KILLIAN CNM Nov 22, 2020 08:48
[2020-11-22 09:17] LABS: HEMOGLOBIN 10.5 g/dl (12.0-15.5); MEAN CORPUSCULAR HEMOGLOBIN 32.2 pg (27.0-33.0); MEAN CORPUSCULAR HGB CONC 32.8 g/dl (32.0-36.5); MEAN CORPUSCULAR VOLUME 98.2 fl (80.0-96.0); PLATELET COUNT, AUTOMATED 167 10^3/uL (150-450); RED BLOOD COUNT 3.26 10^6/uL (4.00-5.40); WHITE BLOOD COUNT 10.2 10^3/uL (4.0-10.0)
[2020-11-22] MEDS: miSOPROStol 50MCG 1/2 TABLET PO SCH ×3 (09:19→17:27)
[2020-11-22] MEDS ORDERED: OXYTOCIN DRIP 30 UNITS in IV 1 EA IV SCH (21:40)
--- NOTE | 2020-11-22 21:44 | IPNPDOC ---
Obstetrical Progress Note Date of Service Nov 22, 2020 Subjective Patient reports she is feeling her contractions. Objective Vital Signs Date Time Temp Pulse Resp B/P (MAP) Pulse Ox O2 Delivery O2 Flow Rate FiO2 11/22/20 20:39 98.3 93 18 135/67 (89) 11/22/20 17:31 Room Air Assessment Heart Rate (FHR): 140 Variability: Moderate Accelerations: Positive Decelerations: None Heart Rate Tracing: Category I Tocometer Contractions: Yes Frequency: regular, every 2-5 min. Sterile Vaginal Examination Dilation: 3 cm Effacement (%): 60% Station: -2 Cervical Consistency: Soft Cervical Position: Anterior Postion/Presentation: Cephalic presentation Assessment and Plan Age: 30 : 4 Term: 1 Pre-term: 1 Abortions: 1 Livin EGA at Admission: 39.2 Status: Reassuring Group B Streptococcus: Negative Anticipate: Vaginal Delivery Additional Comments IV Pitocin to be started per order. JAMES KILLIAN CNM Nov 22, 2020 21:44
[2020-11-22] MEDS: LR 1,000 ML IV SCH (22:06)
[2020-11-23] VITALS (52 sets, daily range): BP systolic 88–137; BP diastolic 53–85
[2020-11-23] MEDS ORDERED: FENTANYL 2MCG/ML ROPIVACAINE 0.2% IN 0.9% NACL 100ML IVBAG As Ordered ONE (00:41)
[2020-11-23] MEDS ORDERED: EPIDURAL/PCA KEYS XX PRN (01:21)
[2020-11-23] MEDS ORDERED: REFRIGERATOR IV KEYS XX PRN (01:21)
[2020-11-23] MEDS ORDERED: NALOXONE INJ 0.4MG/1ML VIAL (J2310 PER 1MG) IV PRN (01:21)
[2020-11-23] MEDS ORDERED: ONDANSETRON 4MG/2ML VIAL IV PRN (01:21)
[2020-11-23] MEDS ORDERED: LACTATED RINGER'S 1000 ML IV PRN (01:21)
[2020-11-23] MEDS ORDERED: EPIDURAL COMMENT XX SCH (01:21)
[2020-11-23] MEDS ORDERED: diphenhydrAMINE 50MG/ML VIAL (J1200) IV PRN (01:21)
[2020-11-23] MEDS ORDERED: ePHEDrine SULFATE 25 MG/5 ML(5MG/ML) SYRINGE IV PRN (01:21)
[2020-11-23] MEDS: FENTANYL/ROPIVACAINE/NACL BAG 100 ML EPIDURAL SCH ×2 (02:03→10:46)
--- NOTE | 2020-11-23 02:31 | IPNPDOC ---
Obstetrical Progress Note Date of Service Nov 23, 2020 Subjective Patient reports she is comfortable with her epidural. Objective Vital Signs Date Time Temp Pulse Resp B/P (MAP) Pulse Ox O2 Delivery O2 Flow Rate FiO2 11/23/20 01:56 75 18 11/23/20 01:51 120/65 (83) 11/23/20 01:40 97.3 11/22/20 17:31 Room Air Assessment Heart Rate (FHR): 125 Variability: Moderate Accelerations: Positive Decelerations: None Heart Rate Tracing: Category I Tocometer Contractions: Yes Frequency: regular Sterile Vaginal Examination Dilation: 4 cm (4-5 cm) Effacement (%): 80% Station: -2 Cervical Consistency: Soft Cervical Position: Anterior Postion/Presentation: Cephalic presentation Assessment and Plan Status: Reassuring Group B Streptococcus: Negative Anticipate: Vaginal Delivery Additional Comments Will consider AROM later as cervix is very anterior. JAMES KILLIAN CNM Nov 23, 2020 02:31
[2020-11-23] MEDS: LR 1,000 ML IV SCH ×2 (06:51→13:53)
--- NOTE | 2020-11-23 08:44 | IPNPDOC ---
Text Note Date of Service The patient was seen on 11/23/20. NOTE I assumed care of Pita at 0730 this morning She is a 30yo undergoing elective IOL at 39w3d that was begun yesterday with 3 doses of cytotec (presented closed/thick/high) then pitocin. She has an epidural and is comfortable. Pitocin currently at 14mu. Vitals wnl, afebrile Abd: soft, gravid, NTTP Extremities: SCDs on and functioning SCE: 4-5/50/-2, AROM Performed with clear fluid noted, well tolerated Cat I FHRT with +accels, -decels, mod thiago [place]: irregular ctx Plan to continue to titrate pitocin per protocol to effect good ctx pattern Will continue to closely observe Plan to recheck in 4hr or earlier as indicated Safe to proceed Domenica Cuello MD VS,Margarita, I+O VSMargarita, I+O Vital Signs Date Time Temp Pulse Resp B/P (MAP) Pulse Ox O2 Delivery O2 Flow Rate FiO2 11/23/20 06:42 98.3 68 18 109/72 (84) 11/22/20 17:31 Room Air I&O- Last 24 Hours up to 6 AM 11/23/20 05:59 Output Total 800 ml Balance -800 ml Domenica Cuello MD Nov 23, 2020 08:44
--- NOTE | 2020-11-23 14:37 | IPNPDOC ---
Text Note Date of Service The patient was seen on 11/23/20. NOTE Intrapartum Note Pt doing well, comfortable with epidural for the most part. Vitals wnl, afebrile SCE at 1230 was 8/80/-1 with hand overlying the head. I tried to push the hand out of the way, but it would not move, so I asked for RN to assist patient with position changes with plan to re-check in 1hr At 1330, SCE 8/80/-1 and again hand noted to be overlying the head. On this check, I was able to push the hand so that it was no longer overlying the head Overall Cat I FHRT with occasional early decels, mod thiago, +accels [place]: ctx q3-4min Plan to continue pitocin per protocol Will recheck in 2hr or earlier as indicated Continue to closely observe Safe to proceed Domenica Cuello MD VS,Margarita I+O VS, Margarita I+O Vital Signs Date Time Temp Pulse Resp B/P (MAP) Pulse Ox O2 Delivery O2 Flow Rate FiO2 11/23/20 12:14 98.2 95 18 137/82 (100) 11/22/20 17:31 Room Air I&O- Last 24 Hours up to 6 AM 11/23/20 05:59 Output Total 800 ml Balance -800 ml Domenica Cuello MD Nov 23, 2020 14:37
--- NOTE | 2020-11-23 16:04 | IPNPDOC ---
Text Note Date of Service The patient was seen on 11/23/20. NOTE Intrapartum Note Pt feeling her ctx and desire to push. Vitals wnl, afebrile SCE: 9/C/-1 (anterior/right lip present, left side is gone). hand NOT palpated Cat I-II FHRT for mod thiago, +accels, occasional variable decel Ctx q3-4min Plan to recheck in 1-2hr or sooner as indicated Advised patient not to push just yet to avoid cervical lac Once C/C, will begin pushing Continue to closely monitor Safe to proceed Domenica Cuello MD VS,Margarita, I+O VS, Margarita I+O Vital Signs Date Time Temp Pulse Resp B/P (MAP) Pulse Ox O2 Delivery O2 Flow Rate FiO2 11/23/20 15:46 94 117/66 (83) 11/23/20 15:41 99.1 20 11/22/20 17:31 Room Air I&O- Last 24 Hours up to 6 AM 11/23/20 06:00 Output Total 800 ml Balance -800 ml Domenica Cuello MD Nov 23, 2020 16:04
[2020-11-23] MEDS ORDERED: MEASLES,MUMPS,RUBELLA VACCINE INJ (MMR-II) (90707) SC SCH (16:35)
[2020-11-23] MEDS ORDERED: RHOGAM 300 MCG (1500 IU) INJ (J2790) IM SCH (16:35)
[2020-11-23] MEDS ORDERED: DOCUSATE SODIUM 100MG CAPSULE PO PRN (16:35)
[2020-11-23] MEDS ORDERED: ACETAMINOPHEN TAB 650MG DOSE (2X325MG) PO PRN (16:35)
[2020-11-23 16:39] LABS: CORD GAS ABE V -3.6; CORD GAS HCO3 V 20.6 MEQ/L; CORD GAS O2 SAT V 60.4 %; CORD GAS PCO2 V 35.3 mmHg; CORD GAS PH V 7.384 UNITS; CORD GAS PO2 V 24.3 mmHg; CORD GAS SBC V 20.5 MEQ/L; CORD GAS TCO2 V 21.7 MEQ/L
[2020-11-23 16:41] LABS: CORD GAS ABE A -5.9; CORD GAS HCO3 A 22.5 MEQ/L; CORD GAS PCO2 A 55.4 mmHg; CORD GAS PH A 7.227 UNITS; CORD GAS TCO2 A 24.2 MEQ/L
[2020-11-23 16:46] LABS: CORD GAS O2 SAT A < 15.0 %; CORD GAS PO2 A 11.5 mmHg
--- NOTE | 2020-11-23 17:36 | DNPDOC ---
[facility] Delivery Note Delivery Note DATE OF DELIVERY: 11/23/20 PREDELIVERY DIAGNOSIS: 39w3d elective IOL POST DELIVERY DIAGNOSIS: Delivered. PROCEDURE: Spontaneous vaginal delivery [employer] M[employer] OPERATOR: Dr. Domenica Cuello MD ANESTHESIA: epidural ESTIMATED BLOOD LOSS: 250 mL. FINDINGS: 8 pound 8 ounce (3850g) female infant, Score 7/9 DELIVERY SUMMARY: Pita is a 30yo [id number] s/p uncomplicated at 39w3d, delivering at 1613 on 11/23/20. She presented closed/thick/high and had induction started with 3 doses of PO cytotec followed by IV pitocin. Received an epidural. She had AROM, clear. She progressed to C/C/0 at which point she began pushing. With good maternal effort, infant's head then delivered OA, restituted HARVEY. Left anterior shoulder delivered followed by posterior shoulder and corpus. There was a right compound hand and cord was loosely wrapped around left arm. Infant was vigorous, had spontaneous cry, placed on maternal abdomen and nose and mouth suctioned with bulb suction. After approximately 2 minutes, cord was clamped x2 and cut by FOB, apgars 7/9. Cord gases obtained (pHa 7.227, BE -5.9, pHv 7.384, BE -3.6). Fundal massage was performed and traction was placed on the umbilical cord, placenta delivered spontaneously and intact with 3 vessel cord noted. At that point, IV pitocin was bolused per protocol. Uterine massage performed and fundus was firm at u-2cm. Inspection of perineum and vagina revealed no lacerations. Total hemostasis noted. All counts were correct x2. Mom and baby were doing well when I left the room. MD Khushboo Keller Katrina D MD Nov 23, 2020 17:36
[2020-11-23] MEDS: IBUPROFEN 800 MG TAB PO PRN (17:58)
[2020-11-23] MEDS ORDERED: SLF 3 ML SYR IV PRN (18:10)
[2020-11-23] MEDS ORDERED: AMPICILLIN SOD/SULBACTAM SOD 3 GM in D5W MINI-BAG PLUS 100 ML IV ONE (22:05)
[2020-11-23] MEDS ORDERED: PERCOCET 5MG/325MG TAB PO PRN (22:05)
[2020-11-23] MEDS ORDERED: MORPHINE 2 MG/ML 1ML VIAL (J2270) IV ONE (22:05)
[2020-11-23] MEDS ORDERED: TRANEXAMIC ACID INJection 1,000 MG in NS 100 ML IV PRN (22:05)
[2020-11-23] MEDS: METHYLERGONOVINE MALEATE 0.2 MG TAB PO SCH (22:22)
[2020-11-23] MEDS: SLF 3 ML SYR IV SCH (22:22)
[2020-11-23] MEDS: ACETAMINOPHEN 500 MG TAB PO PRN (22:55)
--- NOTE | 2020-11-24 00:37 | IPNPDOC ---
Text Note Date of Service The patient was seen on 11/24/20. NOTE Hemorrhage I was called to the room by RN for concern for PPH. Patient had gotten out of bed to ambulate to bathroom and had a large gush of blood that ran down her legs and onto floor. There were 3 nurses present when I arrived to the room, she was receiving fundal massage and weems catheter was being placed which retrieved less than 50cc urine. There were already a few chucks pads saturated with blood. Patient was conversant though nervous, lying in bed. Recent BP normotensive. I donned sterile gloves and performed a manual sweep of the uterus which was productive of several hundred cc's of clot. I had to perform several passes, approximately 5-6, retrieving large handfuls of clot each time and expressing more with fundal massage. During all of this, I asked for 0.2mg IM methergine to be given, then 1000mg TXA IV, and finally after I retrieved all of the clot and the fundus was firm with uterus now u-2cm, I placed 800mcg cytotec SC. I continued fundal massage until I was reassured that all of the uterotonics were working to effect good tone and there was no further bleeding. Patient tolerated all of this extremely well but had quite a bit of cramping at the end when uterotonics were in play, so I ordered for her to receive 2mg morphine IV x1 with 1 tab PO percocet q6hr prn for continued discomfort. I also ordered a PO methergine series 0.2mg q6hr for total 4 doses and Unasyn 3g IV x1 for the manual sweeps. Lastly, I ordered a CBC. Total EBL: 1500ml based on weighed chucks pads, etc. Patient will be monitored closely. If she has symptomatic anemia, will transfuse pRBCs Safe to proceed MD ELYSIA Keller Fishbone, I+Margarita VUONG I+Shonna Vital Signs Date Time Temp Pulse Resp B/P (MAP) Pulse Ox O2 Delivery O2 Flow Rate FiO2 11/23/20 23:00 18 11/23/20 20:00 97.7 88 112/57 (75) 97 Room Air I&O- Last 24 Hours up to 6 AM 11/24/20 06:00 Intake Total 2241 ml Output Total 3818 ml Balance -1577 ml Domenica Cuello MD Nov 24, 2020 00:37
[2020-11-24 00:55] LABS: HEMATOCRIT 26.3 % (36.0-47.0); HEMOGLOBIN 8.7 g/dl (12.0-15.5); MEAN CORPUSCULAR HEMOGLOBIN 32.6 pg (27.0-33.0); MEAN CORPUSCULAR HGB CONC 33.1 g/dl (32.0-36.5); MEAN CORPUSCULAR VOLUME 98.5 fl (80.0-96.0); PLATELET COUNT, AUTOMATED 140 10^3/uL (150-450); RED BLOOD COUNT 2.67 10^6/uL (4.00-5.40)
[2020-11-24 02:00] VITALS: BP 105/58
[2020-11-24] MEDS: IBUPROFEN 800 MG TAB PO PRN (04:05)
[2020-11-24] MEDS: METHYLERGONOVINE MALEATE 0.2 MG TAB PO SCH ×4 (04:05→22:05)
[2020-11-24] MEDS: SLF 3 ML SYR IV SCH ×3 (04:06→22:00)
[2020-11-24 06:00] VITALS: BP 113/71
[2020-11-24] MEDS: FERROUS SULFATE 325MG TAB PO SCH ×2 (08:12→21:11)
[2020-11-24] MEDS: PRENATAL VITAMINS CHEWABLE TABLET PO SCH (08:12)
[2020-11-24] MEDS: ACETAMINOPHEN 500 MG TAB PO PRN (08:13)
[2020-11-24] MEDS ORDERED: DOK1CAP7 PO (08:32)
[2020-11-24] MEDS ORDERED: IBUP80TA PO (08:32)
[2020-11-24] MEDS ORDERED: FERR1TAB8 PO (08:32)
--- NOTE | 2020-11-24 08:44 | IPNPDOC ---
Progress Note Date of Service: Nov 24, 2020 Day#: 1 Progress Note PPD 1 SUBJECT: Pita is a 30yo [id number] s/p at 39w3d, delivering at 1613 on 11/23/20, complicated by delayed PPH last night, doing well day # 1. PPH was late last night and addressed with several uterine sweeps, methergine IM, TXA, cytotec PV, and then she was continued on PO methergine series. She received a dose of IV unasyn for the sweeps. Since that time she states she feels much better. Reports lochia is now like a normal period. She has been ambulating without lightheadedness/dizziness, voiding spontaneously without issue and tolerating regular diet. Breast feeding without issue. No f/c/n/v/CP /SOB. OBJECTIVE: VITAL SIGNS: Within normal limits, afebrile. Alert and oriented times three. Abdomen: Fundus firm at U-2. Soft, NTTP. Extremities: no pain with palpation of calves pre-delivery H/H: 10.5/32 post-PPH H/H: 8.7/26.3 ASSESSMENT: Pita is a 30yo [id number] s/p at 39w3d, delivering at 1613 on 11/23/20, complicated by delayed PPH last night, doing well day # 1. Vitals within normal limits, afebrile, hemodynamically stable with no evidence of infection. PLAN: 1. Routine care, possible discharge home later today if stable H/H and doing well 2. Percocet and Motrin for pain with transition to motrin and tylenol prior to discharge. 3. Encourage breast feeding and ambulation. 4. Continue PO methergine series 5. Regular diet 6. Rx iron for anemia, colace for bowel regimen 7. Repeat CBC at 1300 today Domencia Cuello MD VS, I&O, 24H, Dannybonjuan carlos Vital Signs/I&O Vital Signs Date Time Temp Pulse Resp B/P (MAP) Pulse Ox O2 Delivery O2 Flow Rate FiO2 11/24/20 06:00 97.9 82 18 113/71 (85) 98 Room Air I&O- Last 24 Hours up to 6 AM 11/24/20 05:59 Intake Total 2991 ml Output Total 3918 ml Balance -927 ml Laboratory Data 24H LABS Laboratory Tests 2 11/23/20 16:27: Cord Arterial Blood pH 7.227, Cord Arterial Blood PCO2 55.4, Cord Arterial Blood PO2 11.5, Cord Arterial Blood HCO3 22.5, Cord Arterial Blood Total CO2 24.2, Cord Arterial Blood Base Excess -5.9, Cord Arterial Base Excess (Standard , Cord Arterial Bld Oxygen Saturation < 15.0 11/23/20 16:29: Cord Venous Blood pH 7.384, Cord Venous Blood PCO2 35.3, Cord Venous Blood PO2 24.3, Cord Venous Blood HCO3 20.6, Cord Venous Blood Total CO2 21.7, Cord Venous Base Excess (Actual) -3.6, Cord Venous Base Excess (Standard) 20.5, Cord Venous Blood Oxygen Saturation 60.4 11/24/20 00:46: Nucleated Red Blood Cells % (auto) 0.0 CBC/BMP Laboratory Tests 11/24/20 00:46 Domenica Cuello MD Nov 24, 2020 08:44
[2020-11-24 10:00] VITALS: BP 132/59
[2020-11-24] MEDS: IBUPROFEN 600MG TAB PO PRN ×2 (12:29→20:24)
[2020-11-24 13:07] LABS: HEMATOCRIT 25.4 % (36.0-47.0); HEMOGLOBIN 8.3 g/dl (12.0-15.5); MEAN CORPUSCULAR HEMOGLOBIN 32.3 pg (27.0-33.0); MEAN CORPUSCULAR HGB CONC 32.7 g/dl (32.0-36.5); MEAN CORPUSCULAR VOLUME 98.8 fl (80.0-96.0); PLATELET COUNT, AUTOMATED 136 10^3/uL (150-450); RED BLOOD COUNT 2.57 10^6/uL (4.00-5.40); WHITE BLOOD COUNT 15.1 10^3/uL (4.0-10.0)
[2020-11-24 14:00] VITALS: BP 118/69
[2020-11-24 18:00] VITALS: BP 123/67
[2020-11-24 22:00] VITALS: BP 115/69
[2020-11-25 02:00] VITALS: BP 114/56
[2020-11-25 05:48] VITALS: BP 116/72
[2020-11-25] MEDS: SLF 3 ML SYR IV SCH (06:00)
[2020-11-25] MEDS: FERROUS SULFATE 325MG TAB PO SCH (09:36)
[2020-11-25] MEDS: PRENATAL VITAMINS CHEWABLE TABLET PO SCH (09:36)
[2020-11-25 10:00] VITALS: BP 128/72
== END 2020-11-25 11:04 | disposition home or self-care (01) | DRG 560 ==
LOC: M LDI 07:44 → M OBS 11-23 20:00
PROVIDERS: ADMIT Advanced Practice Midwife; ATTEND Advanced Practice Midwife
PROC: 3E0P7GC Introduction of Other Therapeutic Substance into Female Reproductive, Via Natural or Artificial Opening (ICD-10-PCS; 2020-11-22)
PROC: 10E0XZZ Delivery of Products of Conception, External Approach (ICD-10-PCS; principal; 2020-11-23)
PROC: 10907ZC Drainage of Amniotic Fluid, Therapeutic from Products of Conception, Via Natural or Artificial Opening (ICD-10-PCS; 2020-11-23)
DX: O64.5XX0 Obstructed labor due to compound presentation, not applicable or unspecified (principal); Z3A.39 39 weeks gestation of pregnancy; Z37.0 Single live birth; O69.2XX0 Labor and delivery complicated by other cord entanglement, with compression, not applicable or unspecified; O72.1 Other immediate postpartum hemorrhage

== ENCOUNTER → 2024-03-11 | Outpatient (CLI) | payer OTHER ==
[~2024-03-11] MED LIST changes: +DOK1CAP4 PO; +FERR1TAB8 PO; +IBUP80TA PO
== END ==
LOC: M WUC 15:14
PROVIDERS: ATTEND Student in an Organized Health Care Education/Training Program
DX: M54.50 Low back pain, unspecified (principal)